=== PATIENT | male | born 1985 | race Caucasian/White ===

== ENCOUNTER 2016-11-09 16:47 | Emergency (ER) | payer OTHER | END 2016-11-09 20:35 | disposition home or self-care (01) | LOC: ER 16:47 | DX: S43.015A Anterior dislocation of left humerus, initial encounter (principal); Z88.2 Allergy status to sulfonamides; X58.XXXA Exposure to other specified factors, initial encounter; Y92.410 Unspecified street and highway as the place of occurrence of the external cause | CPT/HCPCS: 96374; 96375 ==

== ENCOUNTER 2016-12-03 14:25 | Emergency (ER) | payer OTHER | END 2016-12-03 15:56 | disposition home or self-care (01) | LOC: ER 14:25 | DX: S43.035A Inferior dislocation of left humerus, initial encounter (principal); F17.210 Nicotine dependence, cigarettes, uncomplicated; Z87.442 Personal history of urinary calculi; W18.2XXA Fall in (into) shower or empty bathtub, initial encounter; Z88.2 Allergy status to sulfonamides | CPT/HCPCS: 96374; 96375; J1885 ==